=== PATIENT | female | born 1980 | race Caucasian/White ===

== ENCOUNTER 2018-11-23 20:53 | Emergency (ER) | payer OTHER ==
[2018-11-23 21:02] VITALS: BP 101/58; PULSE 69; RESP 20; TEMP 97.7; O2SAT 91
== END 2018-11-23 21:54 | disposition home or self-care (01) | DRG 563 ==
LOC: ED 20:53
DX: S93.402A Sprain of unspecified ligament of left ankle, initial encounter (principal); W18.40XA Slipping, tripping and stumbling without falling, unspecified, initial encounter
CPT/HCPCS: 73610; 73630; 99283